=== PATIENT | female | born 1990 ===

== ENCOUNTER → 2025-03-20 12:58 | Outpatient (BNVA) | payer MEDICARE, MEDICAID, SELFPAY | PROVIDERS: Family Provider Nurse Practitioner Family; PCP Nurse Practitioner Family; Visit Provider Nurse Practitioner Family | DX: L70.0 Acne vulgaris (principal); D22.62 Melanocytic nevi of left upper limb, including shoulder; L30.9 Dermatitis, unspecified; L91.0 Hypertrophic scar | CPT/HCPCS: 11104; 11900; 99203 ==